=== PATIENT | male | born 1985 | race Caucasian/White ===

== ENCOUNTER 2022-07-10 20:39 | Emergency (ER) | payer SELFPAY ==
[~2022-07-10] VITALS: Ht 154.9 cm; Wt 65.8 kg
[2022-07-10 21:20] VITALS: BP 144/97
--- NOTE | 2022-07-10 21:25 | NUR ---
PATIENT IN BED, a/oX4, CHEST RISE AND FALL SYMMETRICAL, NO C/O PAIN OR S/S OF DISCOMFORT, SEIZURE PADS IN PLACE.
--- NOTE | 2022-07-10 21:28 | NUR ---
PATIENT AMBULATED TO BED 4
[2022-07-10] MEDS ORDERED: ONDANSETRON 4 MG/2 ML VIAL IVP ONE (21:55)
[2022-07-10] MEDS ORDERED: LORazepam 2 MG/ML VIAL IVP ONE (21:55)
[2022-07-10] MEDS ORDERED: NACL 0.9% 1,000 ML IV ONE (21:55)
--- NOTE | 2022-07-10 22:00 | NUR ---
PATIENT IN BED, a/oX4, CHEST RISE AND FALL SYMMETRICAL, NO C/O PAIN OR S/S OF DISCOMFORT, SEIZURE PADS IN PLACE.
[2022-07-10 22:05] LABS: BASOPHILS # (AUTO) 0.1 K/uL (0.00-0.22); BASOPHILS % (AUTO) 0.5 % (0.0-2.0); HEMATOCRIT 43.3 % (36-52); HEMOGLOBIN 14.5 g/dL (12.0-18.0); LYMPHOCYTES # (AUTO) 0.8 K/uL (2.0-11.5); MEAN CORPUSCULAR HEMOGLOBIN 28 pg (27-31); MEAN CORPUSCULAR HGB CONC 34 g/dL (33-37); MEAN CORPUSCULAR VOLUME 82.6 fL (80-94); MONOCYTES # (AUTO) 1.1 K/uL (0.8-1.0); MONOCYTES % (AUTO) 8.4 % (1.7-9.3); NEUTROPHILS # (AUTO) 11.4 K/uL (1.8-7.7); NEUTROPHILS % (AUTO) 85.1 % (42.2-75.2); PLATELET COUNT (AUTO) 332 K/uL (140-450); RED BLOOD CELL COUNT(AUTO) 5.24 MIL/uL (4.20-6.10); RED CELL DISTRIBUTION WIDTH 14.7 % (11.6-13.7); WHITE BLOOD COUNT (AUTO) 13.4 K/uL (4.8-10.8)
[2022-07-10 22:30] LABS: ALBUMIN 4.2 g/dL (3.4-5.0); ANION GAP 21.4 (8-16); CARBON DIOXIDE 21.2 mmol/L (21-32); TOTAL BILIRUBIN 0.7 mg/dL (0.0-1.0)
[2022-07-10] MEDS ORDERED: chlordiazePOXIDE 25 MG CAP PO STA (22:30)
[2022-07-10 22:55] LABS: POTASSIUM 2.6 mmol/L (3.5-5.1)
[2022-07-10 22:58] LABS: CREATININE 1.1 mg/dL (0.6-1.3)
[2022-07-10] MEDS ORDERED: POTASSIUM CHLORIDE 20% 40 MEQ/15 ML UDC PO ONE (23:00)
[2022-07-10 23:02] LABS: APPEARANCE,URINE CLEAR (CLEAR); BILIRUBIN,URINE NEGATIVE (NEGATIVE); BLOOD, URINE NEGATIVE (NEGATIVE); COLOR,URINE YELLOW (YELLOW); LEUKOCYTE ESTERASE ,URINE NEGATIVE (NEGATIVE); NITRITE, URINE NEGATIVE (NEGATIVE); UGLUCOSE 3+ (NEGATIVE)
[2022-07-10 23:13] LABS: BARBITURATE, URINE NEGATIVE ng/ml (NEG <=200); BENZODIAZEPINE, URINE NEGATIVE ng/mL (NEG <=200); CANNABINOID, URINE NEGATIVE ng/mL (NEG <=50); COCAINE, URINE NEGATIVE ng/mL (NEG <=300); OPIATE, URINE NEGATIVE ng/mL (NEG <=2000); PHENCYCLIDINE SCREEN,URINE NEGATIVE ng/mL (NEG <=25)
--- NOTE | 2022-07-10 23:15 | NUR ---
PATIENT IN BED, a/oX4, CHEST RISE AND FALL SYMMETRICAL, NO C/O PAIN OR S/S OF DISCOMFORT, SEIZURE PADS IN PLACE.
--- NOTE | 2022-07-11 00:05 | NUR ---
PATIENT IN BED, a/oX4, CHEST RISE AND FALL SYMMETRICAL, NO C/O PAIN OR S/S OF DISCOMFORT, SEIZURE PADS IN PLACE.
[2022-07-11] MEDS ORDERED: LIB25 PO (00:30)
--- NOTE | 2022-07-11 01:01 | NUR ---
PATIENT IN BED, a/oX4, CHEST RISE AND FALL SYMMETRICAL, NO C/O PAIN OR S/S OF DISCOMFORT, SEIZURE PADS IN PLACE.
[2022-07-11 01:07] VITALS: BP 117/85
--- NOTE | 2022-07-11 01:13 | NUR ---
Patient discharged with v/s stable. Written and verbal after care instructions given and explained. Patient alert, oriented and verbalized understanding of instructions. Ambulatory with steady gait. All questions addressed prior to discharge. ID band removed. Patient advised to follow up with PMD. Rx of Librium given. Patient educated on indication of medication including possible reaction and side effects. Opportunity to ask questions provided and answered.
== END 2022-07-11 01:10 | disposition home or self-care (01) ==
LOC: MED 20:39
DX: F10.239 Alcohol dependence with withdrawal, unspecified (principal); E87.6 Hypokalemia; Y90.9 Presence of alcohol in blood, level not specified
CPT/HCPCS: 36415; 80053; 80305; 81003; 85025; 96361; 96374; 96375; 99284; G0482; J2060; J2405; J7030

== ENCOUNTER 2022-07-30 13:56 | Emergency (ER) | payer SELFPAY ==
[~2022-07-30] VITALS: Ht 149.9 cm; Wt 64.4 kg
[~2022-07-30 13:56] MED LIST: LIB25 PO
[2022-07-30 14:08] VITALS: BP 127/63
[2022-07-30 14:35] LABS: BASOPHILS # (AUTO) 0.1 K/uL (0.00-0.22); BASOPHILS % (AUTO) 1.1 % (0.0-2.0); EOSINOPHILS % (AUTO) 0.3 % (0.0-4.0); HEMATOCRIT 43.8 % (36-52); HEMOGLOBIN 14.7 g/dL (12.0-18.0); LYMPHOCYTES # (AUTO) 0.8 K/uL (2.0-11.5); LYMPHOCYTES % (AUTO) 9.8 % (20.5-51.1); MEAN CORPUSCULAR HEMOGLOBIN 28 pg (27-31); MEAN CORPUSCULAR HGB CONC 34 g/dL (33-37); MEAN CORPUSCULAR VOLUME 82.5 fL (80-94); MONOCYTES # (AUTO) 0.5 K/uL (0.8-1.0); MONOCYTES % (AUTO) 6.2 % (1.7-9.3); NEUTROPHILS # (AUTO) 6.9 K/uL (1.8-7.7); NEUTROPHILS % (AUTO) 82.6 % (42.2-75.2); PLATELET COUNT (AUTO) 362 K/uL (140-450); RED CELL DISTRIBUTION WIDTH 14.6 % (11.6-13.7); WHITE BLOOD COUNT (AUTO) 8.4 K/uL (4.8-10.8)
[2022-07-30 14:48] LABS: CARBON DIOXIDE 24.8 mmol/L (21-32); TOTAL BILIRUBIN 0.6 mg/dL (0.0-1.0)
[2022-07-30 15:07] LABS: ANION GAP 13.1 (8-16); POTASSIUM 3.9 mmol/L (3.5-5.1)
[2022-07-30] MEDS ORDERED: ATA25 PO (15:47)
--- NOTE | 2022-07-30 15:50 | NUR ---
C/O DIZZINESS AND CRAMPING IN THE LEGS X1 WEEK NKA PMH: DENIES
--- NOTE | 2022-07-30 15:57 | NUR ---
Patient discharged with v/s stable. Written and verbal after care instructions ABOUT PANIC ATTACK AND DIZZINESS given and explained. Patient alert, oriented and verbalized understanding of instructions. Ambulatory with steady gait. All questions addressed prior to discharge. ID band removed. Patient advised to follow up with PMD. Rx of ATARAX given. Patient educated on indication of medication including possible reaction and side effects. Opportunity to ask questions provided and answered.
== END 2022-07-30 15:57 | disposition home or self-care (01) ==
LOC: MED 13:56
DX: R42 Dizziness and giddiness (principal); F41.9 Anxiety disorder, unspecified; R53.1 Weakness; R06.02 Shortness of breath; Z79.899 Other long term (current) drug therapy
CPT/HCPCS: 36415; 80053; 85025; 99283